=== PATIENT | female | born 1985 | race African-American/Black ===

== ENCOUNTER 2020-11-24 13:08 | Emergency (ER) | payer BC, SELFPAY ==
--- NOTE | ~2020-11-24 | XR_ITS ---
EXAMINATION: XR abdomen/kub 1V INDICATION: Right flank pain TECHNIQUE: Supine views of the abdomen were obtained on 2 radiographs. COMPARISON: None FINDINGS: There is a moderate volume of colonic stool. A 4 mm calcification is present in the right p lyle. There are phleboliths of the left pelvis. An IUD is noted the visualized lung bases are clear. IMPRESSION: 1. 4 mm right pelvic calcification which could reflect phlebolith or possibly ureteral stone. Reviewed, dictated and finalized at location A. IMPRESSION: 1. 4 mm right pelvic calcification which could reflect phlebolith or possibly u reteral stone.
[2020-11-24 13:25] VITALS: BP 136/97; PULSE 85; RESP 18; TEMP 37.1; O2SAT 100
--- NOTE | 2020-11-24 13:35 | ED.FEMALEGU ---
HPI - Female Genitourinary General Chief complaint: Urogenital-Female Stated complaint: Possible UTI Time Seen by Provider: 11/24/20 13:45 Source: patient and RN notes reviewed Mode of arrival: ambulatory Limitations: no limitations History of Present Illness HPI Narrative: 35-year-old female presents the concern for 2-week history of area, pelvic cramping. Reports in the last several days she has had right flank pain. Reports the flank pain is 8/10. She reports a feeling of not fully emptying her bladder, hematuria. She reports intermittent nausea, denies abdominal pain. She denies fever, body aches, chills. She denies intervention. MD elicited complaint: dysuria and other (Flank pain) Related Data Home Medications Medication Instructions Recorded Confirmed bupropion HCl [Wellbutrin XL] 150 mg PO QAM 11/24/20 11/24/20 bupropion HCl [Wellbutrin XL] 300 mg PO QAM 11/24/20 11/24/20 Allergies Allergy/AdvReac Type Severity Reaction Status Date / Time No Known Allergies Allergy Verified 11/24/20 13:35 Review of Systems Review of Systems: Narrative: CONSTITUTIONAL: Denies malaise, chills, sweats, or fever. CARDIOVASCULAR: Denies chest pain, palpitations, or edema. RESPIRATORY: Denies cough or dyspnea. GASTROINTESTINAL: Denies abdominal pain, vomiting, diarrhea. Reports nausea GENITOURINARY: Reports dysuria, pelvic cramping, right flank pain, hematuria. MUSCULOSKELETAL: Denies myalgia. PMFSH Comments At time of signature, agree with nursing past medical, surgical, social and family history. There is no relevant family history pertinent to the presenting complaint Exam Narrative: Exam Narrative: GENERAL: Well-appearing, well-nourished, and in no acute distress. HEAD: Normocephalic. EYES: PERRLA, conjunctivae clear. NECK: Supple. No lymphadenopathy CHEST: Clear to auscultation. No respiratory distress. HEART: Regular rate and rhythm. ABDOMEN: Soft, nontender upon palpation, nondistended, normal active bowel sounds, no palpable or pulsatile masses, no guarding. Right CVA tenderness SKIN: Warm, dry, no rash. NEURO: Alert and oriented x3. PSYCH: Normal mood and affect Course Course Emergency Course: Patient is aware of diagnosis, understands and agrees to treatment plan. Anticipatory guidance given. Patient agrees to follow-up as directed and is aware of reasons to seek care at the emergency department. Portions of this record may have been created with voice recognition software Vital Signs Vital signs: Vital Signs Temperature 98.7 F 11/24/20 13:25 Pulse Rate 85 11/24/20 13:25 Respiratory Rate 18 11/24/20 13:25 Blood Pressure 136/97 H 11/24/20 13:25 Pulse Oximetry 100 11/24/20 13:25 Temperature 98.7 F 11/24/20 13:25 Pulse Rate 85 11/24/20 13:25 Respiratory Rate 18 11/24/20 13:25 Blood Pressure 136/97 H 11/24/20 13:25 Pulse Oximetry 100 11/24/20 13:25 Reviewed. Patient has been instructed to follow up with her primary care provider within the next week regarding her elevated blood pressure today. MDM - Female Genitourinary MDM Narrative Medical decision making narrative: Exam findings and UA show no acute concerns or changes; patient is non-toxic appearing and is in no distress. Patient is appropriate for outpatient treatment and follow-up. Differential Diagnosis Differential diagnosis: Likely urinary tract infection, vaginitis, cystitis and other (Nephrolithiasis, pyelonephritis) Lab Data Attestation: I reviewed the patient's lab results. Labs: Urine Glucose Negative Reference Range: Negative Urine Bilirubin Negative Reference Range: Negative Urine Ketone Negative Reference Range: Negative Urine Specific [place] 1.025 Refe
== END 2020-11-24 14:25 | disposition home or self-care (01) ==
PROVIDERS: Emergency Provider Nurse Practitioner
DX: N20.0 Calculus of kidney (principal); J45.909 Unspecified asthma, uncomplicated; F41.9 Anxiety disorder, unspecified; F32.9 Major depressive disorder, single episode, unspecified
CPT/HCPCS: 74018; 81003; 87077; 87086; 87088; 87186; 99213; G0463